=== PATIENT | male | born 1975 | race Caucasian/White ===

== ENCOUNTER 2017-06-25 18:02 | Emergency (ER) | payer BC, OTHER ==
[~2017-06-25] VITALS: Ht 172.7 cm; Wt 121.2 kg
[2017-06-25 18:09] VITALS: BP 151/86
--- NOTE | 2017-06-25 18:15 | NUR ---
PT AMBULATES BACK TO THE LOBBY PER DR FLORENCE
--- NOTE | 2017-06-25 20:30 | NUR ---
PATIENT AMBULATED TO ER CHAIR D
--- NOTE | 2017-06-25 21:00 | NUR ---
42Y/M PT. PRESENTS TO ED WITH C/O ANXIETY 3 WKS. PT. STATES BROKE UP WITH GIRL FARIEND AND HAVING ANXIETY ATTACK, TAKING VENLAVAXINE, PT. STATES MAKE HIM MORE ANXIETY. AAO X4, AMBULATORY WITH STDEAY GAIT. NO S/SX OF DISTRESS AT THIS TIME. VSS, ER MADE AWARE OF PT. STATUS.
--- NOTE | 2017-06-25 21:04 | NUR ---
Dr. Ziegler evaluating patient.
--- NOTE | 2017-06-25 21:15 | NUR ---
Patient discharged with v/s stable. Written and verbal after care instructions given and explained. Patient alert, oriented and verbalized understanding of instructions. Ambulatory with steady gait. All questions addressed prior to discharge. ID band removed. Patient advised to follow up with PMD. Rx of XANAX 0.5 MG given. Patient educated on indication of medication including possible reaction and side effects. Opportunity to ask questions provided and answered.
[2017-06-25 21:48] VITALS: BP 134/81
== END 2017-06-25 21:15 | disposition home or self-care (01) ==
LOC: MED 18:02
DX: F41.9 Anxiety disorder, unspecified (principal); E11.9 Type 2 diabetes mellitus without complications; I10 Essential (primary) hypertension
CPT/HCPCS: 82948; 99284

== ENCOUNTER 2023-10-06 22:54 | Emergency (ER) | payer BC, MEDICAID ==
[~2023-10-06] VITALS: Ht 175.3 cm; Wt 122.5 kg
[2023-10-06 23:22] VITALS: BP 169/90; PULSE 62; RESP 15; TEMP 97.6; O2SAT 99
== END 2023-10-07 02:00 | disposition left against medical advice (07) ==
LOC: MED 22:54
DX: R10.31 Right lower quadrant pain (principal); R11.0 Nausea; R51.9 Headache, unspecified; Z53.21 Procedure and treatment not carried out due to patient leaving prior to being seen by health care provider
CPT/HCPCS: 82948